=== PATIENT | male | born 1995 | race Caucasian/White ===

== ENCOUNTER 2017-04-22 19:32 | Emergency (ER) | payer SELFPAY ==
[2017-04-22 19:34] VITALS: BP 149/75; TEMP 97.5
[2017-04-22 20:50] VITALS: PULSE 72
== END 2017-04-22 20:50 | disposition home or self-care (01) ==
LOC: COL.ER 19:32
DX: S20.219A Contusion of unspecified front wall of thorax, initial encounter (principal); W50.0XXA Accidental hit or strike by another person, initial encounter; Y93.63 Activity, rugby; Y92.830 Public park as the place of occurrence of the external cause